=== PATIENT | female | born 1970 | race Caucasian/White ===

== ENCOUNTER 2016-12-16 11:39 | Emergency (ER) | payer OTHER ==
[2016-12-16 11:46] VITALS: BMI 28.8
--- NOTE | 2016-12-16 12:06 | PDOC ---
History of Present Illness <Estephanie Diez - Last Filed: 12/16/16 13:55> - General History Source: Patient Exam Limitations: No Limitations <Sergio Noonan - Last Filed: 12/16/16 15:21> - General Chief Complaint: Chest Pain Stated Complaint: CHEST PAIN, BACK PAIN Time Seen by Provider: 12/16/16 11:51 - History of Present Illness Initial Comments: 12/16/16 12:47 46Y F no pmhx presents with complaint of back pain x 1 week. The pt state the pain was gradual in on set, in the L upper back, worse when she lays down and walks, improves when she sits down. The pt states the pain has been gradually worsening over week and now she is experiencing some chest pain as well. Pt denies any sob, numbness/tingling/weakness, abd pain, diaphoresis, n/v , abd pain. Pt states she works a [employer]. Pt states she took some aspirin at home with mild improvement, but pain recurred. Pt states she has a history of a pinched nerve but this darrick is different from that. Pt denies smoking, drug use, etoh abuse (Sergio Noonan) Past History <Estephanie Diez - Last Filed: 12/16/16 13:55> - Past Medical History Other medical history: none - Psycho/Social/Smoking Cessation Hx Anxiety: No Suicidal Ideation: No Smoking History: Never smoked Have you smoked in the past 12 months: No Information on smoking cessation initiated: No Hx Alcohol Use: No Drug/Substance Use Hx: No Substance Use Type: None <Sergio Noonan - Last Filed: 12/16/16 15:21> - Past Medical History Allergies/Adverse Reactions: Allergies Allergy/AdvReac Type Severity Reaction Status Date / Time No Known Allergies Allergy Verified 12/16/16 11:41 Home Medications: Ambulatory Orders Cyclobenzaprine HCl [Flexeril -] 10 mg PO TID #21 tablet 12/16/16 Lidocaine 5% Patch [Lidoderm Patch -] 1 patch TP DAILY #7 patch 12/16/16 Review of Systems <Estephanie Diez - Last Filed: 12/16/16 13:55> - Review of Systems Able to Perform ROS?: Yes <Sergio Noonan - Last Filed: 12/16/16 15:21> - Review of Systems Comments:: 12/16/16 12:50 Constitutional - no reported Fever, Chills, weakness, HEENT: no reported vision changes, sore throat Respiratory: no reported cough, sob, hemoptysis Cardiac: no reported chest pain, palpitations, light headedness, leg swelling Abd/GI: no reported abd pain, nausea, vomiting, blood per rectum, melena, diarrhea : no reported dysuria, frequency, discharge Musculskelatal - + back pain radaitiong to chest no reported , joint swelling skin - no reported bruising, erythema, rash neurological: no reported headache, numbness, focal weakness, tingling, ataxia, weakness hematologic: no reported anemia, easy bruising, easy bleeding (Sergio Noonan) *Physical Exam <RgAlexisEstephanie - Last Filed: 12/16/16 13:55> <Sergio Noonan - Last Filed: 12/16/16 15:21> - Vital Signs Last Vital Signs Temp Pulse Resp BP Pulse Ox 98.0 F 60 14 103/82 100 12/16/16 11:44 12/16/16 13:53 12/16/16 13:53 12/16/16 13:53 12/16/16 13:53 - Physical Exam Comments: 12/16/16 12:51 GENERAL: The patient is awake, alert, and fully oriented, Nontoxic - in no acute distress. HEAD: Normocephalic, atraumatic. EYES: extraocular movements intact, sclera anicteric, conjunctiva clear. ENT: Normal voice, Moist mucous membranes. NECK: Normal range of motion, supple LUNGS: Breath sounds equal, clear to auscultation bilaterally. No wheezes, no rhonchi, no rales. HEART: Regular rate and rhythm, normal S1 and S2 without murmur, rub or gallop. ABDOMEN: Soft, nontender, normoactive bowel sounds. No guarding, no rebound. . No CVA tenderness EXTREMITIES: Normal range of motion, no edema. No clubbing or cyanosis. No cords, erythema, or tenderness. BACKL No mildline tenderness to cervical/thoracic/lumbar spine, mild tenderness and hypertrophy to L parapsinal back. NEUROLOGICAL: No facial assymetry, Normal speech, moving all 4 extremities spontaneously and symmetrically PSYCH: Normal mood, normal affect. SKIN: Warm, Dry, normal turgor, (Thomas Noonanan) Heart Score/ECG Review <Estephanie Diez - Last Filed: 12/16/16 13:55> <ShaistaSergio - Last Filed: 12/16/16 15:21> - ECG Impressions Comment:: 12/16/16 12:51 Twelve-lead EKG was performed and reviewed by me. There is normal sinus rhythm with a normal rate. The axis is normal. The intervals are normal. There is normal R wave progression Nonspecific T-wave inversion in lead 3, flattening in aVF (Sergio Noonan) ED Treatment Course - LABORATORY CBC & Chemistry Diagram: 12/16/16 12:30 12/16/16 12:30 <Estephanie Diez - Last Filed: 12/16/16 13:55> - LABORATORY CBC & Chemistry Diagram: 12/16/16 12:30 12/16/16 12:30 <Sergio Noonan - Last Filed: 12/16/16 15:21> - ADDITIONAL ORDERS Additional order review: Laboratory Results 12/16/16 12/16/16 12/16/16 13:45 12:30 12:30 INR 1.11 Sodium 140 Potassium 4.0 Chloride 104 Carbon Dioxide 27 Anion Gap 9 BUN 9 Creatinine 0.6 Creat Clearance w eGFR > 60 Random Glucose 83 Calcium 8.4 L Magnesium 2.3 Total Bilirubin 0.3 AST 15 ALT 19 Alkaline Phosphatase 113 Creatine Kinase 74 Troponin I < 0.02 Total Protein 7.5 Albumin 3.5 Lipase Cancelled 109 12/16/16 12:30 RBC 4.35 MCV 75.4 L MCHC 32.9 RDW 18.3 H MPV 8.3 Neutrophils % 52.1 Lymphocytes % 37.1 Monocytes % 9.3 Eosinophils % 1.0 Basophils % 0.5 - RADIOLOGY Radiology Studies Ordered: Category Date Time Status CHEST PA & LAT [RAD] Stat Radiology 12/16/16 12:07 Completed Radiograph Interpretation: 12/16/16 13:57 Chest X-Ray The heart size is within normal limits. The lung arrington are free of pulmonary infiltrates or pleural effusions. IMPRESSION: Normal chest. Reported By: Ariel Kaiser MD 12/16/16 [id number] (Estephanie Diez) - Medications Given in the ED: ED Medications Discontinued Medications Generic Name Dose Route Start Last Admin Trade Name Sandip PRN Reason Stop Dose Admin Aspirin 162 mg 12/16/16 12:07 12/16/16 12:41 Asa - PO 12/16/16 12:08 162 mg ONCE ONE Administration Diazepam 5 mg 12/16/16 12:47 12/16/16 13:08 Valium - PO 12/16/16 12:48 5 mg ONCE ONE Administration Ketorolac Tromethamine 30 mg 12/16/16 12:47 12/16/16 13:08 Toradol Injection - IVPUSH 12/16/16 12:48 30 mg ONCE ONE Administration Medical Decision Making <Estephanie Diez - Last Filed: 12/16/16 13:55> <Sergio Noonan - Last Filed: 12/16/16 15:21> - Medical Decision Making 12/16/16 12:52 46y F hx of presenting with 1 week of worsening upper back pain radiates to the chest the pain was gradual in onset, and seems positional. On exam the patient has focal tenderness in the left paraspinal thoracic back. I suspect the patient's symptoms are muscular in nature, and area to her type of work. We'll treat this patient supportively with Toradol and Valium There is no midline tenderness to suggest any acute bony injuries Also considered possibility of aortic dissection as a cause of her pain however I believe this is less likely due to the patients lack of risk factors and atypical presentation of her symptoms. Will reassess the patient after medications 12/16/16 15:10 pts feeling improved labs reviewed and are unremarkable cxr negative will dc pt with supportive management return precautions were discussed I discussed the physical exam findings, ancillary test results and final diagnoses with the patient. I answered all of the patient's questions. The patient was satisfied with the care received and felt comfortable with the discharge plan and treatment plan. The patient will call their primary care physician within 24 hours to arrange follow-up and will return to the Emergency Department with any new, persistent or worsening symptoms. (Sergio Noonan) *DC/Admit/Observation/Transfer <Estephanie Diez - Last Filed: 12/16/16 13:55> - Discharge Dispostion Admit: No <Sergio Noonan - Last Filed: 12/16/16 15:21> Diagnosis at time of Disposition: Muscle strain of left upper back Qualifiers: Encounter type: initial encounter Qualified Code(s): S29.012A - Strain of muscle and tendon of back wall of thorax, initial encounter - Discharge Dispostion Disposition: HOME Condition at time of disposition: Improved - Referrals Referrals: [facility] [Provider Group] - Patient Instructions Printed Discharge Instructions: DI for Thoracic Back Pain, DI for Low Back Pain Additional Instructions: Vuelva al departamento de urgencias inmediatamente con CUALQUIER nuevo, persistente o empeorando los sntomas, incluyendo entumecimiento, hormigueo, debilidad, fiebre o cualquier otra preocupacin. [place] ibuprofeno para el dolor segn sea necesario. Aplicar calor a los msculos doloridos. Usted DEBE llamar y seguir con yang doctor maana para la evaluacin adicional de lula sntomas. Los resultados fueron discutidos con usted. Por favor, asegrese de que yang mdico revise los resultados de yang evaluacin de emergencia. Return to the emergency department immediately with ANY new, persistent or worsening symptoms including numbness, tingling, weakness, fevers or any other concerns. Take ibuprofen for pain as needed. Apply heat to your sore muscles. You MUST call and follow up with your doctor tomorrow for further evaluation of your symptoms. Results were discussed with you. Please make sure your doctor reviews the results of your emergency evaluation. Print Language: KAZAKH
[2016-12-16] MEDS ORDERED: ASPIRIN 81 MG CHEWABLE TABLETS PO ONE (12:07)
[2016-12-16] MEDS ORDERED: ASPIRIN 81 MG CHEWABLE TABLETS ONE (12:35)
[2016-12-16 12:46] LABS: BASOPHIL 0.5 % (0-2.0); MCH 24.8 pg (25.7-33.7); MCHC 32.9 g/dl (32.0-36.0); MEAN CELL VOLUME 75.4 fl (80-96); MEAN PLT VOLUME 8.3 fl (7.5-11.1); NEUTROPHILS 52.1 % (42.8-82.8); PLATELET COUNT 266 K/MM3 (134-434); RDW 18.3 % (11.6-15.6)
[2016-12-16] MEDS ORDERED: KETOROLAC TROMETHAMINE 30 MG/1 ML VIAL IVPUSH ONE (12:47)
[2016-12-16] MEDS ORDERED: diazePAM 5 MG TABLET PO ONE (12:47)
[2016-12-16] MEDS ORDERED: diazePAM 5 MG TABLET ONE (13:01)
[2016-12-16] MEDS ORDERED: KETOROLAC TROMETHAMINE 30 MG/1 ML VIAL ONE (13:02)
[2016-12-16 13:06] LABS: INR 1.11 (0.82-1.09); PROTHROMBIN TIME (PATIENT) 12.2 SEC (9.98-11.88)
[2016-12-16 13:27] LABS: ALBUMIN 3.5 g/dl (3.4-5.0); ANION GAP 9 (8-16); BILIRUBIN,TOTAL 0.3 mg/dL (0.2-1.0); CALCIUM 8.4 mg/dL (8.5-10.1); CO2 27 mmol/L (21-32); CREATININE 0.6 mg/dL (0.55-1.02); GLUCOSE,RANDOM 83 mg/dL (74-106); MAGNESIUM 2.3 mg/dL (1.8-2.4); SGOT/AST 15 U/L (15-37); SGPT/ALT 19 U/L (12-78); TOT PROT 7.5 g/dl (6.4-8.2)
[2016-12-16 13:28] LABS: ALK PHOS 113 U/L (45-117); TROPONIN I < 0.02 ng/ml (0.00-0.05)
[2016-12-16 15:57] VITALS: BP 109/79; PULSE 62; TEMP 98.6
--- NOTE | 2016-12-16 23:15 | EKG ---
Test Reason : Blood Pressure : / mmHG Vent. Rate : 060 BPM Atrial Rate : 060 BPM P-R Int : 134 ms QRS Dur : 092 ms QT Int : 426 ms P-R-T Axes : 007 006 002 degrees QTc Int : 426 ms NORMAL SINUS RHYTHM INFERIOR INFARCT , AGE UNDETERMINED ABNORMAL ECG WHEN COMPARED WITH ECG OF 09-MAR-2008 12:21, NO SIGNIFICANT CHANGE WAS FOUND Confirmed by ALMA ROSA ROWE MD ([id number]) on 12/16/2016 11:15:02 PM Referred By: Confirmed By:ALMA ROSA ROWE MD
== END 2016-12-16 14:30 | disposition home or self-care (01) ==
LOC: JER 11:39
PROC: 3E033GC Introduction of Other Therapeutic Substance into Peripheral Vein, Percutaneous Approach (ICD-10-PCS; principal; 2016-12-16)
DX: S29.012A Strain of muscle and tendon of back wall of thorax, initial encounter (principal); X58.XXXA Exposure to other specified factors, initial encounter; Y93.89 Activity, other specified; Y92.9 Unspecified place or not applicable
CPT/HCPCS: 36415; 71020-TC; 80053; 82550; 83690; 83735; 84484; 85025; 85610; 93005; 93010; 96374; 99283-25

== ENCOUNTER 2019-01-28 20:34 | Emergency (ER) | payer OTHER ==
[2019-01-28 20:37] VITALS: BP 143/73; PULSE 68; TEMP 98; BMI 25.7
--- NOTE | 2019-01-28 21:47 | PDOC ---
History of Present Illness - General Chief Complaint: Back Pain Stated Complaint: BACK PAIN Time Seen by Provider: 01/28/19 21:41 History Source: Patient - History of Present Illness Initial Comments: 01/28/19 22:41 48-year-old female complaining of right lateral lower back pain for the last 1 month on and off. Reports that pain radiates to both legs. Patient reports some frequency urination. Denies fevers/chills, incontinence of bowel or urine. No past medical history denies trauma or injury or fall Past History - Past Medical History Allergies/Adverse Reactions: Allergies Allergy/AdvReac Type Severity Reaction Status Date / Time No Known Allergies Allergy Verified 01/28/19 20:37 Home Medications: Ambulatory Orders Cyclobenzaprine HCl [Flexeril -] 10 mg PO HS PRN #7 tablet 01/28/19 Ibuprofen 600 mg PO QID PRN #20 tablet 01/28/19 Lidocaine 5% Patch [Lidoderm -] 1 patch TP DAILY PRN #7 patch 01/28/19 COPD: No - Suicide/Smoking/Psychosocial Hx Smoking History: Never smoked Have you smoked in the past 12 months: No Hx Alcohol Use: No Drug/Substance Use Hx: No Substance Use Type: None Review of Systems - Review of Systems Able to Perform ROS?: Yes Is the patient limited Kinyarwanda proficient: No Constitutional: No: Symptoms Reported, See HPI, Chills, Diaphoresis, Fever, Loss of Appetite, Malaise, Night Sweats, Weakness, Weight Stable, Unintentional Wgt. Loss, Unexplained wgt Loss, Other Musculoskeletal: Yes: Back Pain. No: Symptoms Reported, See HPI, Gout, Joint Pain, Joint Swelling, Muscle Pain, Muscle Weakness, Neck Pain, Joint Stiffness, Other Integumentary: No: Symptoms Reported, See HPI, Bruising, Change in Color, Change in Hair/Nails, Dryness, Erythema, Flushing, Lesions, Lumps, Pallor, Pruritus, Rash, Sweating, Other *Physical Exam - Vital Signs Last Vital Signs Temp Pulse Resp BP Pulse Ox 98.0 F 68 18 143/73 99 01/28/19 20:35 01/28/19 20:35 01/28/19 20:35 01/28/19 20:35 01/28/19 20:35 - Physical Exam General Appearance: Yes: Appropriately Dressed Respiratory/Chest: positive: Lungs Clear, Normal Breath Sounds Gastrointestinal/Abdominal: positive: Normal Bowel Sounds, Soft. negative: Tender Musculoskeletal: positive: Normal Inspection, Muscle Spasm (b/l paraspinal area pain), Vertebral Tenderness Extremity: positive: Normal Capillary Refill, Normal Inspection, Normal Range of Motion Integumentary: positive: Normal Color, Dry, Warm Neurologic: positive: Fully Oriented, Alert, Normal Mood/Affect Moderate Sedation - Procedure Monitoring Vital Signs: Procedure Monitoring Vital Signs Temperature 98.0 F 01/28/19 20:35 Pulse Rate 68 01/28/19 20:35 Respiratory Rate 18 01/28/19 20:35 Blood Pressure 143/73 01/28/19 20:35 O2 Sat by Pulse Oximetry (%) 99 01/28/19 20:35 Medical Decision Making - Medical Decision Making 01/28/19 22:43 A: back pain P: ua ucx pain control *DC/Admit/Observation/Transfer Diagnosis at time of Disposition: Back pain Qualifiers: Back pain location: low back pain Chronicity: acute Back pain laterality: bilateral Sciatica presence: with sciatica Sciatica laterality: bilateral sciatica Qualified Code(s): M54.42 - Lumbago with sciatica, left side; M54.41 - Lumbago with sciatica, right side - Discharge Dispostion Disposition: HOME - Prescriptions Prescriptions: Cyclobenzaprine HCl [Flexeril -] 10 mg PO HS PRN #7 tablet PRN Reason: Muscle Spasms Ibuprofen 600 mg PO QID PRN #20 tablet PRN Reason: Back Pain Lidocaine 5% Patch [Lidoderm -] 1 patch TP DAILY PRN #7 patch PRN Reason: Back Pain - Referrals Referrals: Jax Caraballo MD [Staff Physician] - 2 Days - Patient Instructions Printed Discharge Instructions: Low Back Pain Additional Instructions: take ibuprofen every 6 hours as needed for pain follow up with your doctor or an orthopedic doctor as soon as possible you may take flexeril for muscle spasms. it can make you sleepy. Additional Instructions: * Please call your personal physician to report your Emergency Department visit and to report your progress, if any. * If there is no improvement in symptoms in 2 days call your physician. * Return to the Emergency Department for any worsening symptoms. - Post Discharge Activity Forms/Work/School Notes: Back to Work
[2019-01-28] MEDS ORDERED: ACETAMINOPHEN 325 MG TABLET (FP) PO ONE (21:48)
[2019-01-28] MEDS ORDERED: ACETAMINOPHEN 325 MG TABLET (FP) ONE (21:58)
[2019-01-28] MEDS ORDERED: LIDOCAINE PATCH REMOVAL MC SCH (22:00)
[2019-01-28 22:26] LABS: URINE APPEARANCE SLCLOUDY; URINE BILIRUBIN NEGATIVE (<2.0 mg/dL); URINE COLOR YELLOW; URINE GLUCOSE (UA) NEGATIVE (NEGATIVE); URINE KETONE NEGATIVE (NEGATIVE); URINE LEUK ESTERASE NEGATIVE (NEGATIVE); URINE NITRITE NEGATIVE (NEGATIVE); URINE PROTEIN NEGATIVE (NEGATIVE)
[2019-01-28] MEDS ORDERED: KETOROLAC TROMETHAMINE 30 MG/1 ML VIAL IM ONE (22:40)
[2019-01-28] MEDS ORDERED: KETOROLAC TROMETHAMINE 30 MG/1 ML VIAL ONE (22:44)
[2019-01-28] MEDS ORDERED: LIDOCAINE 5% TOPICAL PATCH TP ONE (22:45)
[2019-01-28] MEDS ORDERED: LIDOCAINE 5% TOPICAL PATCH ONE (22:52)
== END 2019-01-28 22:58 | disposition home or self-care (01) ==
LOC: JERFT 20:34
PROC: 3E0233Z Introduction of Anti-inflammatory into Muscle, Percutaneous Approach (ICD-10-PCS; principal; 2019-01-28)
DX: M54.41 Lumbago with sciatica, right side (principal); M54.42 Lumbago with sciatica, left side
CPT/HCPCS: 81003; 87086; 96372; 99281-25